=== PATIENT | female | born 1995 | race Two or more races ===

== ENCOUNTER 2021-09-21 11:31 | Emergency (ER) | payer MEDICAID, SELFPAY | END 2021-09-21 12:54 | disposition home or self-care (01) | LOC: ERS 11:31 | DX: M54.2 Cervicalgia (principal); K21.9 Gastro-esophageal reflux disease without esophagitis | CPT/HCPCS: 99283 ==

== ENCOUNTER 2022-05-19 15:07 | Emergency (ER) | payer OTHER, MEDICAID ==
[2022-05-19] MEDS ORDERED: Ketorolac Tromethamine 30 MG/ML VIAL ONE (17:12)
[2022-05-19] MEDS ORDERED: Diazepam 5 MG TAB ONE (17:36)
== END 2022-05-19 18:56 | disposition home or self-care (01) ==
LOC: ERS 15:07
DX: S13.4XXA Sprain of ligaments of cervical spine, initial encounter (principal); M62.838 Other muscle spasm; J45.909 Unspecified asthma, uncomplicated; K21.9 Gastro-esophageal reflux disease without esophagitis; V89.0XXA Person injured in unspecified motor-vehicle accident, nontraffic, initial encounter
CPT/HCPCS: 72072; 72100; 72125; 96372; J1885

== ENCOUNTER 2022-08-20 12:32 | Outpatient (CLI) | payer OTHER | END 2022-08-20 12:33 | disposition home or self-care (01) | LOC: TBSIIMAG 12:32 | PROVIDERS: ATTEND Neurological Surgery | DX: M54.2 Cervicalgia (principal); M54.50 Low back pain, unspecified; R29.890 Loss of height; M47.892 Other spondylosis, cervical region | CPT/HCPCS: 72050; 72120 ==